=== PATIENT | female | born 1970 | race Caucasian/White ===

== ENCOUNTER 2016-11-22 13:14 | Outpatient (CLI) ==
[2015-08-23 13:47] VITALS: BMI 20.1
--- NOTE | 2016-11-22 14:03 | DI ---
EXAM: Left hip two-view HISTORY: Pain COMPARISON: None FINDINGS: The bones are normal. The hip joint is normal. No focal soft tissue abnormality. IMPERSSION: Normal examination.
--- NOTE | 2016-11-22 14:42 | DI ---
EXAM: Three views of the left shoulder. History: Left shoulder pain. Findings: No acute fracture or dislocation. No abnormal calcifications or radiopaque foreign topher s. Joint spaces are preserved. Impression: Unremarkable exam.
== END 2016-11-22 13:15 | disposition home or self-care (01) ==
LOC: RAD 13:14
PROVIDERS: ATTEND Physician Assistant
DX: M25.552 Pain in left hip (principal); M25.512 Pain in left shoulder

== ENCOUNTER 2017-03-28 10:16 | Emergency (ER) ==
[2017-03-28 10:21] VITALS: BP 125/90; TEMP 99; BMI 21.9
[2017-03-28 11:41] LABS: BASOPHILS % (AUTO) 0.6 % (0.0-3.0); EOSINOPHILS # (AUTO) 0.1 K/ul (0.0-0.7); EOSINOPHILS % (AUTO) 1.1 % (0.0-7.0); HEMOGLOBIN 13.9 g/dl (12.0-16.0); IMMATURE GRANULOCYTE % (AUTO) 0.6 % (0.0-5.0); LYMPHOCYTES # (AUTO) 1.3 K/uL (0.60-3.4); LYMPHOCYTES % (AUTO) 25.1 (10.0-50.0); MEAN CORPUSCULAR HEMOGLOBIN 31.9 pg (27.0-31.0); MEAN CORPUSCULAR HGB CONC 35.6 (31.8-35.4); MEAN CORPUSCULAR VOLUME 89.4 fl (81.0-99.0); MONOCYTES # (AUTO) 0.3 K/uL (0.4-2.0); MONOCYTES % (AUTO) 6.3 (0-10); NEUTROPHILS # (AUTO) 3.5 K/ul (2.0-6.9); NEUTROPHILS % (AUTO) 66.3; PLATELET COUNT 219 10^3/uL (140-440); RED BLOOD COUNT 4.36 10^6/ul (4.20-5.40); WHITE BLOOD COUNT 5.25 K/ul (4.6-10.2)
[2017-03-28 11:49] LABS: BILIRUBIN,URINE Negative (NEGATIVE); KETONES,URINE Negative (NEGATIVE); LEUKOCYTE ESTERASE ,URINE Negative (NEGATIVE); NITRITE,URINE Negative (NEGATIVE); PH,URINE 5.5 (5-9); PROTEIN,URINE Negative (NEGATIVE); URINE, BLOOD Negative (NEGATIVE)
[2017-03-28 11:51] LABS: ADD URINE MICROSCOPIC NO
[2017-03-28 12:13] LABS: ALBUMIN/GLOBULIN RATIO 1.29; ANION GAP 13.8; BILIRUBIN,TOTAL 0.43 mg/dL (0.00-1.20); BUN/CREATININE RATIO 17.72; CALCIUM 9.5 mg/dL (8.2-10.2); CREATININE 0.79 mg/dL (0.60-1.30); POTASSIUM 3.8 mmol/L (3.5-5.10); TOTAL PROTEIN 7.1 g/dL (6.4-8.2)
--- NOTE | 2017-03-28 12:16 | CT ---
EXAM: CT scan abdomen pelvis without contrast HISTORY: Pain COMPARISON: CT scan abdomen pelvis 08/07/2014, CT scan abdomen 02/09/2015 FINDINGS: Contiguous axial images obtained through the abdomen pelvis without contrast utilizing 5-m m collimation. Sagittal and coronal reconstructions were imaged and reviewed.. The visualized lung bases are clear. There has been prior cholecystectomy. The liver, pancreas, spleen and adrenal glan ds have normal unenhanced CT appearance. The right kidney is morphologically normal.. There is a 6 mm nonobstructive calculus lower pole left kidney. There is partial visualization of the appendix whi ch appears normal. There is no free fluid or inflammatory changes. Atherosclerotic changes are seen involving the abdominal aorta without aneurysm formation.. There is a small umbilical hernia contai gabriella only fat.. Bone windows reveals no evidence of lytic or blastic lesions. IMPRESSION: No acute intra-abdominal findings. Nonobstructive left-sided nephrolithiasis. Small umbilical hernia containing only fat. Status post cholecystectomy
--- NOTE | 2017-03-28 12:34 | ED.PDOC ---
General ED Provider: Dr. JOSE HOPPER Chief Complaint: Abdominal Pain Stated Complaint: abdominal pain Time Seen by Physician: 10:17 Mode of Arrival: Walk-In Information Source: Patient Exam Limitations: No limitations Primary Care Provider: REDDY GARCIA Nursing and Triage Documentation Reviewed and Agree: Yes GI Complaint Exam - Abdominal Pain Complaint/Exam Onset: Gradual Duration: 1 day Symptoms Are: Still present Timing: Constant Initial Severity: Mild Current Severity: Mild Location of Pain: Discrete Character: Reports: Dull Aggravating: Reports: None Alleviating: Reports: None Associated Signs and Symptoms: Denies: Diaphoresis, Fever, Cough, Chest pain, Dizziness, Back pain, Constipation, Blood in stool, Dysuria, Urinary frequency, Decreased urine output, Decreased appetite, Vaginal bleeding, Vaginal discharge , Nausea, Vomiting, Diarrhea, Sore throat, Decreased activity Related History: Reports: Similar episode AAA Risk Factors: Reports: None Cardiac Risk Factors: Reports: None Ectopic Risk Factors: Reports: None Ovarian Torsion Risk Factors: Reports: None Surgical Obstruction Risk Factors: Reports: None Related Surgical History: Reports: None Patient Rh Status: Unknown Abdominal Findings: Present: None Differential Diagnoses: Appendicitis, Bowel Obstruction, Constipation Review of Systems - Review Of Systems Constitutional: Reports: No symptoms Eyes: Reports: No symptoms Ears, Nose, Mouth, Throat: Reports: No symptoms Respiratory: Reports: No symptoms Cardiac: Reports: No symptoms GI: Reports: Abdominal pain : Reports: No symptoms Musculoskeletal: Reports: No symptoms Skin: Reports: No symptoms Neurological: Reports: No symptoms Endocrine: Reports: No symptoms Hematologic/Lymphatic: Reports: No symptoms All Other Systems: Reviewed and Negative Past Medical History - Past Medical History Endocrine: Reports: DM 2 Cardiovascular: Reports: None Respiratory: Reports: None Hematological: Reports: None Gastrointestinal: Reports: GERD Genitourinary: Reports: None Neuro/Psych: Reports: Migraine, Seizure (recurrent intracranial variceal bleeds) Musculoskeletal: Reports: None Cancer: Reports: Other (ovarian) Last Menstrual Period: hysterectomy Other Pertinent Past Medical History: demerol- throat swelling and blotchy rash no symptoms with vicodin after th - Surgical History General Surgical History: Reports: Hysterectomy - Family History Family History: Reports: Diabetes, Stroke - Social History Smoking Status: Former smoker Hx Substance Use: No Alcohol Screening: None - Immunizations Tetanus Shot up to Date: Yes Physical Exam - Physical Exam Appearance: Well-appearing, No pain distress, Well-nourished Eyes: GELACIO, EOMI, Conjunctiva clear ENT: Ears normal, Nose normal, Oropharynx normal Respiratory: Airway patent, Breath sounds clear, Breath sounds equal, Respirations nonlabored Cardiovascular: RRR, Pulses normal, No rub, No murmur GI/: Soft, Nontender, No masses, Bowel sounds normal, No Organomegaly Musculoskeletal: Normal strength, ROM intact, No edema, No calf tenderness Skin: Warm, Dry, Normal color Neurological: Sensation intact, Motor intact, Reflexes intact, Cranial nerves intact, Alert, Oriented Psychiatric: Affect appropriate, Mood appropriate Interpretation - Radiology Interpretation Radiology Interpretation By: Radiologist Radiology Results: No acute changes Critical Care Note - Critical Care Note Total Time (mins): 0 Course - Course Hematology/Chemistry: 03/28/17 11:27 03/28/17 11:37 Orders, Labs, Meds: Lab Review 03/28/17 03/28/17 03/28/17 10:50 11:27 11:37 WBC 5.25 RBC 4.36 Hgb 13.9 Hct 39.0 MCV 89.4 MCH 31.9 H MCHC 35.6 H RDW Coeff of Nii 12.1 Plt Count 219 Immature Gran % (Auto) 0.6 Neut % (Auto) 66.3 Lymph % (Auto) 25.1 [place] % (Auto) 6.3 Eos % (Auto) 1.1 Baso % (Auto) 0.6 Immature Gran # (Auto) 0.0 Neut # 3.5 Lymph # 1.3 [place] # 0.3 L Eos # 0.1 Baso # 0.0 Sodium 142 Potassium 3.8 Chloride 105 Carbon Dioxide 27 Anion Gap 13.8 BUN 14 Creatinine 0.79 Estimated GFR (MDRD) 79.00 BUN/Creatinine Ratio 17.72 Glucose 98 Calcium 9.5 Total Bilirubin 0.43 AST 16 ALT 8 L Alkaline Phosphatase 59 Total Protein 7.1 Albumin 4.0 Globulin 3.1 Albumin/Globulin Ratio 1.29 Amylase 44 Lipase 36 Urine Color Yellow Urine Clarity Clear Urine pH 5.5 Ur Specific [place] 1.015 Urine Protein Negative Urine Glucose (UA) Negative Urine Ketones Negative Urine Blood Negative Urine Nitrite Negative Urine Bilirubin Negative Urine Urobilinogen 0.2 Ur Leukocyte Esterase Negative Orders Category Date Time Status AMYLASE Stat LAB 03/28/17 11:37 Completed CBC W/ AUTO DIFF Stat LAB 03/28/17 11:27 Completed COMPREHENSIVE METABOLIC PANEL Stat LAB 03/28/17 11:37 Completed LIPASE Stat LAB 03/28/17 11:37 Completed URINALYSIS C & S IF INDICATED Stat LAB 03/28/17 10:[address] ABDOMEN/PELVIS WO CONTRAST Stat RADS 03/28/17 11:28 Completed Vital Signs: Temp Pulse Resp BP Pulse Ox 03/28/17 10:17 99.0 F 102 H 18 125/90 99 Departure - Departure Time of Disposition: 12:33 (discharge instruction given with tato verde all labs imaging, copy of imaging is given to the pt .ot seen at ALL TIME WITH NURSING STAFF) Disposition: HOME SELF-CARE Discharge Problem: Abdominal pain Instructions: Abdominal Pain (ED) Condition: Good Pt referred to PMD for follow-up: Yes Additional Instructions: Please call your Family Physician as soon as possible to schedule a follow-up appointment. Allergies/Adverse Reactions: Allergies aspirin Adverse Reaction (Verified 03/28/17 10:21) codeine Adverse Reaction (Verified 03/28/17 10:21) Latex, Natural Rubber Adverse Reaction (Verified 03/28/17 10:21) meperidine HCl [From Demerol] Adverse Reaction (Verified 03/28/17 10:21) Tape Adverse Reaction (Uncoded 03/28/17 10:21) Home Medications: Ambulatory Orders Albuterol Sulfate 0.042% Neb [Albuterol 0.042% Neb] 1 vial NEB RTBID PRN Trazodone HCl 200 mg PO BEDTIME 01/04/13 Diazepam [Valium] 5 mg PO Q12HR 08/23/15 Levetiracetam [Keppra] 500 mg PO BID 08/23/15 Ondansetron HCl [Zofran] 8 mg PO TID 08/23/15 Disposition Discussed With: Patient
== END 2017-03-28 12:41 | disposition home or self-care (01) ==
LOC: ED 10:16
DX: R10.9 Unspecified abdominal pain (principal)
CPT/HCPCS: 36415; 80053; 81001; 82150; 83690; 85025; 99283

== ENCOUNTER 2017-08-13 14:39 | Observation (INO) ==
[2017-08-13 14:49] VITALS: BMI 23.8
--- NOTE | 2017-08-13 17:04 | CT ---
EXAM: CTA of the chest. History: Chest pain. Comparison: CT abdomen pelvis 03/28/2017 Technique: Multiplanar CT images through the thorax were obtained following administration of IV con trast. MIP images and 3-D reconstructions were also acquired. Findings: Heart size is normal. Great vessels are not well opacified with contrast material but dem onstrate no aneurysm formation. No pericardial effusion. No pathologically enlarged thoracic lymph n odes. No pulmonary arterial filling defects. No focal consolidation. No appreciable pleural fluid a nd no pneumothorax. No lung masses or lung nodules. Within the visualized upper abdomen, status post cholecystectomy. 5 mm calculus within the left kidn ey. The no acute osseous abnormalities. Impression: 1. No pulmonary embolism and no evidence for pneumonia. 2. Nonobstructing left nephrolithiasis.
[2017-08-13] MEDS ORDERED: ASPIRIN CHEWABLE PO STA (17:07)
[2017-08-13] MEDS ORDERED: ALBUTEROL SULFATE NEB PRN (17:08)
[2017-08-13] MEDS ORDERED: DIAZEPAM 5 MG PO PRN (17:08)
--- NOTE | 2017-08-13 17:15 | ED.PDOC ---
General ED Provider: Dr. JOSE HOPPER Chief Complaint: Shortness of Air Stated Complaint: chest pain Time Seen by Physician: 14:44 (seen with nursing staff) Mode of Arrival: Wheelchair Information Source: Patient Exam Limitations: No limitations Primary Care Provider: REDDY GARCIA Referred to ED by: Other (nonesmoker) Nursing and Triage Documentation Reviewed and Agree: Yes Reviewed sepsis parameters & appropriate labs ordered?: Yes (history from Mr Susan and the pt) System Inflammatory Response Syndrome: Not Applicable Sepsis Protocol: For patient's 13 years and over: Temp is 96.8 and below OR 101 and greater Pulse >90 BPM Resp >20/minute Acutely Altered Mental Status Are patient's symptoms suggestive of a new infection, such as: -Pneumonia -Skin, Soft Tissue -Endocarditis -UTI -Bone, Joint Infection -Implantable Device -Acute Abdominal Infection -Wound Infection -Meningitis -Blood Stream Catheter Infection -Unknown System Inflammatory Response Syndrome: Not Applicable Cardiovascular Complaint Exam - Chest Pain Complaint/Exam Onset: Sudden Duration: 30 min 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 Denies: Diaphoresis, Nausea, Vomiting, Fever, Palpitations, Hemoptysis, Back pain, Abdominal pain, Dizziness , Short of air, Calf pain, Calf swelling Related History: Reports: Similar episode Related Surgical History: Denies: Cardiac Cath, PTCA/Stent, CABG, Pacemaker, Valve Replacement, Aneurysm Repair, Renal Surgery History of Healthcare-Acquired Pneumonia: Reports: No AMI/ACS Risk Factors: Reports: Diabetes (ON METFORMIN). Denies: Myocardial Infarction, Sedentary, Family history, Nitroglycerine use, Hypertension, Smoking , CHF, Cocaine use, Dyslipidemia TAD Risk Factors: Reports: None Pulmonary Embolism Risk Factors: Reports: None Recent Stress Test: No Recent Echo/LV Function: No JVD Present: No Subcutaneous Emphysema Present: No Diminshed Breath Sounds: No Reproducible Chest Wall Pain: No Bilateral Pulses Present: No Unequal Pulses Noted: No If Risk Factors for AMI/ACS Consider: EKG, Cardiac Enzymes Review of Systems - Review Of Systems Constitutional: Reports: No symptoms Eyes: Reports: No symptoms Ears, Nose, Mouth, Throat: Reports: No symptoms Respiratory: Reports: No symptoms Cardiac: Reports: Chest pain GI: Reports: No symptoms : Reports: No symptoms Musculoskeletal: Reports: No symptoms Skin: Reports: No symptoms Neurological: Reports: No symptoms Endocrine: Reports: No symptoms Hematologic/Lymphatic: Reports: No symptoms All Other Systems: Reviewed and Negative Past Medical History - Past Medical History Previously Healthy: Yes Endocrine: Reports: DM 2 Cardiovascular: Reports: None Respiratory: Reports: None Hematological: Reports: None Gastrointestinal: Reports: GERD Genitourinary: Reports: None Neuro/Psych: Reports: Migraine, Seizure (recurrent intracranial variceal bleeds) Musculoskeletal: Reports: None Cancer: Reports: Other (ovarian) Last Menstrual Period: none Other Pertinent Past Medical History: demerol- throat swelling and blotchy rash no symptoms with vicodin after th - Surgical History General Surgical History: Reports: Hysterectomy - Family History Family History: Reports: Diabetes, Stroke - Social History Smoking Status: Former smoker Hx Substance Use: No Alcohol Screening: None Physical Exam - Physical Exam Appearance: Well-appearing, No pain distress, Well-nourished Eyes: GELACIO, EOMI, Conjunctiva clear ENT: Ears normal, Nose normal, Oropharynx normal Respiratory: Airway patent, Breath sounds clear, Breath sounds equal, Respirations nonlabored Cardiovascular: RRR, Pulses normal, No rub, No murmur GI/: Soft, Nontender, No masses, Bowel sounds normal, No Organomegaly Musculoskeletal: Normal strength, ROM intact, No edema, No calf tenderness Skin: Warm, Dry, Normal color Neurological: Sensation intact, Motor intact, Reflexes intact, Cranial nerves intact, Alert, Oriented Psychiatric: Affect appropriate, Mood appropriate Interpretation - Radiology Interpretation Radiology Interpretation By: Radiologist Radiology Results: No acute changes - 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 Rate: Normal Rhythm: Sinus Ectopy: None - EKG Interpretation Rate: Normal Rhythm: Sinus Ectopy: None [place]: NL ST Segment: Normal Physician Notification - Case Discussed Physician Notified: STEPHEN FLORES Time of Notification: 17:17 Admit To: Observation Critical Care Note - Critical Care Note Total Time (mins): 0 Course - Course Hematology/Chemistry: 08/13/17 14:55 08/13/17 14:55 Orders, Labs, Meds: Lab Review 08/13/17 08/13/17 08/13/17 14:55 14:55 14:55 WBC 9.26 RBC 4.28 Hgb 13.8 Hct 39.9 MCV 93.2 MCH 32.2 H MCHC 34.6 RDW Coeff of Nii 12.2 Plt Count 214 Immature Gran % (Auto) 0.4 Neut % (Auto) 67.9 Lymph % (Auto) 24.3 [place] % (Auto) 5.5 Eos % (Auto) 1.5 Baso % (Auto) 0.4 Immature Gran # (Auto) 0.0 Neut # (Auto) 6.3 Lymph # (Auto) 2.3 [place] # (Auto) 0.5 Eos # (Auto) 0.1 Baso # (Auto) 0.0 PT 9.2 L INR 0.92 APTT 25.2 Sodium Potassium Chloride Carbon Dioxide Anion Gap BUN Creatinine Estimated GFR (MDRD) BUN/Creatinine Ratio Glucose Calcium Total Bilirubin AST ALT Alkaline Phosphatase Total Creatine Kinase 55 Troponin I < 0.0100 Total Protein Albumin Globulin Albumin/Globulin Ratio 08/13/17 14:55 WBC RBC Hgb Hct MCV MCH MCHC RDW Coeff of Nii Plt Count Immature Gran % (Auto) Neut % (Auto) Lymph % (Auto) [place] % (Auto) Eos % (Auto) Baso % (Auto) Immature Gran # (Auto) Neut # (Auto) Lymph # (Auto) [place] # (Auto) Eos # (Auto) Baso # (Auto) PT INR APTT Sodium 138 Potassium 3.3 L Chloride 103 Carbon Dioxide 22 Anion Gap 16.3 BUN 13 Creatinine 0.72 Estimated GFR (MDRD) 88.00 BUN/Creatinine Ratio 18.05 Glucose 107 Calcium 9.5 Total Bilirubin 0.5 AST 21 ALT 16 Alkaline Phosphatase 73 Total Creatine Kinase Troponin I Total Protein 7.3 Albumin 3.9 Globulin 3.4 Albumin/Globulin Ratio 1.15 Orders Category Date Time Status ADMIT OBSERVATION [PLACE PATIENT OBSERVATION] .TO ADMISSION 08/13/17 17:06 Active MEDSURG (MONITORED BED) EKG-(ED ONLY) Stat CARDIO 08/13/17 14:54 Completed EKG-(IP & OP ONLY) DAILY CARDIO 08/14/17 06:00 Ordered EKG-(IP & OP ONLY) DAILY CARDIO 08/15/17 06:00 Ordered EKG-(IP & OP ONLY) DAILY CARDIO 08/16/17 06:00 Ordered STRESS ECHO Routine CARDIO 08/13/17 17:06 Ordered BLOOD GLUCOSE MONITORING ACCUCHECK Q6H CARE 08/13/17 17:05 Active GIVE HS SNACK 2100 CARE 08/13/17 17:06 Active INTAKE & OUTPUT Q8HR CARE 08/13/17 17:05 Active NPO REMINDER: IMAGING ONCE CARE 08/13/17 16:00 Completed TELEMETRY MONITORING TELE CARE 08/13/17 17:07 Active VITAL SIGNS Q4HR CARE 08/13/17 17:05 Active ADA 1800 LUCIO. DIET DIETARY 08/13/17 Dinner Ordered HS SNACK DIETARY 08/13/17 Dinner Ordered REGULAR DIET DIETARY 08/13/17 Dinner Ordered CBC W/ AUTO DIFF DAILY@0600 LAB 08/14/17 06:00 Ordered CBC W/ AUTO DIFF DAILY@0600 LAB 08/15/17 06:00 Ordered CBC W/ AUTO DIFF Stat LAB 08/13/17 14:55 Completed COMPREHENSIVE METABOLIC PANEL DAILY@0600 LAB 08/14/17 06:00 Ordered COMPREHENSIVE METABOLIC PANEL DAILY@0600 LAB 08/15/17 06:00 Ordered COMPREHENSIVE METABOLIC PANEL Stat LAB 08/13/17 14:55 Completed CREATINE KINASE Q8H LAB 08/13/17 23:15 Ordered CREATINE KINASE Q8H LAB 08/14/17 07:15 Ordered CREATINE KINASE Stat LAB 08/13/17 14:55 Completed PARTIAL THROMBOPLASTIN TIME Stat LAB 08/13/17 14:55 Completed PT WITH INR Stat LAB 08/13/17 14:55 Completed TROPONIN I Q8H LAB 08/13/17 23:15 Ordered TROPONIN I Q8H LAB 08/14/17 07:15 Ordered TROPONIN I Stat LAB 08/13/17 14:55 Completed 0.9 % Sodium Chloride [Saline Flush] MEDS 08/13/17 14:54 Active 1 syr IVF PRN PRN Albuterol Sulfate 0.042% Neb [Albuterol 0.042% Neb] MEDS 08/13/17 17:08 Ordered 1 vial NEB RTBID PRN Aspirin [Aspirin Chewable] MEDS 08/13/17 17:07 Discontinued 324 mg PO ONCE STA Diazepam [Valium] MEDS 08/13/17 17:08 Ordered 5 mg PO Q12HR PRN Levetiracetam [Keppra] MEDS 08/13/17 21:00 Ordered 500 mg PO BID Ondansetron HCl [Zofran] MEDS 08/13/17 21:00 Ordered 8 mg PO TID Sodium Chloride 0.9% [Sodium Chloride] 1,000 ml MEDS 08/13/17 17:30 Ordered IV 75 mls/hr CT CHEST PE PROTOCOL Stat RADS 08/13/17 15:59 Completed Medications Generic Name Dose Route Start Last Admin Trade Name Freq PRN Reason Stop Dose Admin Sodium Chloride 1,000 mls @ 75 mls/hr 08/13/17 17:30 Sodium Chloride IV .[id number] BILLIE Non-Formulary Medication 1 vial 08/13/17 17:08 Albuterol Sulfate 0.042% Neb [Albuterol 0.042% Neb] NEB RTBID PRN Bronchospasm Non-Formulary Medication 5 mg 08/13/17 17:08 Diazepam [Valium] PO Q12HR PRN Anxiety Non-Formulary Medication 500 mg 08/13/17 21:00 Levetiracetam [Keppra] PO BID BILLIE Non-Formulary Medication 8 mg 08/13/17 21:00 Ondansetron Hcl [Zofran] PO TID BILLIE Sodium Chloride 1 syr 08/13/17 14:54 Saline Flush IVF PRN PRN To flush IV Discontinued Medications Generic Name Dose Route Start Last Admin Trade Name Freq PRN Reason Stop Dose Admin Aspirin 324 mg 08/13/17 17:07 Aspirin Chewable PO 08/13/17 17:08 ONCE STA Vital Signs: Temp Pulse Resp BP Pulse Ox 08/13/17 17:10 60 128/91 H 98 08/13/17 14:39 97.7 F 76 20 152/91 H 100 GARTH Risk Score GARTH Risk Score: Risk Score Odds of by 30D 0 0.1 (0.1-0.2) 1 0.3 (0.2-0.3) 2 0.4 (0.3-0.5) 3 0.7 (0.6-0.9) 4 1.2 (1.0-1.5) 5 2.2 (1.9-2.6) 6 3.0 (2.5-3.6) 7 4.8 (3.8-6.1) Departure - Departure Time of Disposition: 17:17 Disposition: PLACED OBSERVATION Discharge Problem: Chest pain Qualifiers: Chest pain type: unspecified Qualified Code(s): R07.9 - Chest pain, unspecified Instructions: Angina (ED) Condition: Good Pt referred to PMD for follow-up: Yes IPMP verified?: No Allergies/Adverse Reactions: Allergies aspirin Adverse Reaction (Verified 08/13/17 14:46) codeine Adverse Reaction (Verified 08/13/17 14:46) Latex, Natural Rubber Adverse Reaction (Verified 08/13/17 14:46) meperidine HCl [From Demerol] Adverse Reaction (Verified 08/13/17 14:46) Tape Adverse Reaction (Uncoded 03/28/17 10:21) Home Medications: Ambulatory Orders Albuterol Sulfate 0.042% Neb [Albuterol 0.042% Neb] 1 vial NEB RTBID PRN Diazepam [Valium] 5 mg PO Q12HR PRN 08/23/15 Levetiracetam [Keppra] 500 mg PO BID 08/23/15 Ondansetron HCl [Zofran] 8 mg PO TID 08/23/15 Disposition Discussed With: Patient, Family
[2017-08-13] MEDS ORDERED: GI COCKTAIL PO STA (17:22)
--- NOTE | 2017-08-13 17:22 | PCM ---
- Chief Complaint Chief Complaint: Chest Pain - History of Present Illness History of Present Illness: 46 yo female presented to ER today around 2:45 reporting substernal crushing, radiating chest pain. She noted chest pain starting around 2:30 pm. Sudden onset, constant pain. Was sitting at gas station, was at [employer] and ate onion ring x 2 bites and then 5 minutes later she had substernal pain. She was sitting in truck, bent over to get an item out of her purse in floor of truck and and then she had pain in the epigastric region, into chest, left jaw and into her left shoulder. not improved by anything. Worsened with deep breathing, bending and any movement. Reported jaw tightness, thick tongue, SOA and jaw tightned up and she had difficulty breathing. Symptoms lasted 15 minutes. This has never happened before. They came here urgently during this event and sought care by ER. She is having epigastric pain, 9/10, she has not received anything for pain. She has prominent acid reflux. She has seen specialist, has been to [place] and was going to get consult for NISSN fundoplication. She normally uses zantac for her reflux symptoms. has never used carafate before. She has not had any recent admissions. Endoscopy and Colonoscopy and esquivel 1 monthy ago. She has had issues with the esophagus and spasm and pain since that event. She had biopsies and everything was clear. She reports negative h. pylori. DM: Last A1c unknown. Only on metformin. Highest glucose in last 2 months 172. Lowest glucose 30. She does not know what her regular sugars are. She has been following with [facility]. She has had pneumonia vaccine. She has never been tested for gastric emptying. She has history of crohns. Gained 20 lb in last 3 months. No chronic steroids. She feels chronic tenesmus. She follows with specialist [facility] for this problem. talks in complete sentences. Pain is not letting up. Pain is now in thel eft anterior chest. Feels pressure sitting on chest pressure, 8/ 10, boulder sitting on chest. Arm is getting better but still has pins/needles. Mild anxiety, no medications for this. She has occasional worsening anxiety. No LOC, mild CUMMINS frontal 3/10 throbbing. 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 Has had numerous surgeries on her brain /spine and has migraines/seizures. No fever. No vision changes. Talking in full sentences no SOA. No falls. mowed this week. No increased activity, no trauma, no increases in pushing/pulling/tugging/lifting. Has coughed more over last 48 hours. GI coctail given 5:38 and this markedly helped abdominal pain but the chest pain was not touched. EKG reveiwed and sinus barb with 58 BPM, axis is normal up in I, isoE AVF and up II and down in III Laboratory Last Values WBC 9.26 K/ul (4.6-10.2) 08/13/17 14:55 RBC 4.28 10^6/ul (4.20-5.40) 08/13/17 14:55 Hgb 13.8 g/dl (12.0-16.0) 08/13/17 14:55 Hct 39.9 % (37.0-47.0) 08/13/17 14:55 MCV 93.2 fl (81.0-99.0) 08/13/17 14:55 MCH 32.2 pg (27.0-31.0) H 08/13/17 14:55 MCHC 34.6 (31.8-35.4) 08/13/17 14:55 RDW Coeff of Nii 12.2 % (11.6-14.8) 08/13/17 14:55 Plt Count 214 10^3/uL (140-440) 08/13/17 14:55 Immature Gran % (Auto) 0.4 % (0.0-5.0) 08/13/17 14:55 Neut % (Auto) 67.9 08/13/17 14:55 Lymph % (Auto) 24.3 (10.0-50.0) 08/13/17 14:55 [place] % (Auto) 5.5 (0-10) 08/13/17 14:55 Eos % (Auto) 1.5 % (0.0-7.0) 08/13/17 14:55 Baso % (Auto) 0.4 % (0.0-3.0) 08/13/17 14:55 Immature Gran # (Auto) 0.0 (0.0-1.0) 08/13/17 14:55 Neut # (Auto) 6.3 K/ul (2.0-6.9) 08/13/17 14:55 Lymph # (Auto) 2.3 K/uL (0.60-3.4) 08/13/17 14:55 [place] # (Auto) 0.5 K/uL (0.4-2.0) 08/13/17 14:55 Eos # (Auto) 0.1 K/ul (0.0-0.7) 08/13/17 14:55 Baso # (Auto) 0.0 K/uL (0-0.2) 08/13/17 14:55 PT 9.2 SEC (9.3-11.0) L 08/13/17 14:55 INR 0.92 SI (0.0-3.9) 08/13/17 14:55 APTT 25.2 SEC (23.9-40.0) 08/13/17 14:55 Sodium 138 mmol/L (136-145) 08/13/17 14:55 Potassium 3.3 mmol/L (3.5-5.10) L 08/13/17 14:55 Chloride 103 mmol/L (98-107) 08/13/17 14:55 Carbon Dioxide 22 mmol/L (21-32) 08/13/17 14:55 Anion Gap 16.3 08/13/17 14:55 BUN 13 mg/dL (7-18) 08/13/17 14:55 Creatinine 0.72 mg/dL (0.60-1.30) 08/13/17 14:55 Estimated GFR (MDRD) 88.00 mL/min 08/13/17 14:55 BUN/Creatinine Ratio 18.05 08/13/17 14:55 Glucose 107 mg/dL (70-110) 08/13/17 14:55 Calcium 9.5 mg/dL (8.2-10.2) 08/13/17 14:55 Total Bilirubin 0.5 mg/dL (0.00-1.20) 08/13/17 14:55 AST 21 U/L (15-37) 08/13/17 14:55 ALT 16 U/L (12-78) 08/13/17 14:55 Alkaline Phosphatase 73 U/L (42-98) 08/13/17 14:55 Total Creatine Kinase 55 U/L 08/13/17 14:55 Troponin I < 0.0100 ng/ml (0.0000-0.4000) 08/13/17 14:55 Total Protein 7.3 g/dL (6.4-8.2) 08/13/17 14:55 Albumin 3.9 g/dL (3.4-5.0) 08/13/17 14:55 Globulin 3.4 08/13/17 14:55 Albumin/Globulin Ratio 1.15 08/13/17 14:55 CTA negative for PE. Non obs left nephrolith A1C returned normal 4.8 Mg normal 2.1 - Review of Systems Constitutional: chills, weakness, sweats, fatigue, loss of appetite. No: fever Eyes: No: blurred vision, double-vision, discharge, itching, pain, redness, photophobia Ears: No: pain, bleeding, drainage, ringing, hearing loss, other Nose: No: bleeding, congestion, discharge, other Throat: swelling. No: pain, voice change, other Mouth: No: bleeding, pain, swelling, other Respiratory: shortness of air (briefly then resolved. Talking in complete sentences in hospital. ), pain with breathing. No: cough, wheeze, hemoptysis, other Cardiovascular: chest pain, left arm pain, diaphoresis. No: PND, orthopnea, edema, palpitations, syncope Gastrointestinal: abdominal pain, nausea, vomiting, dysphagia. No: other, diarrhea, melena, hematemesis, hematochezia, constipation Genitourinary: No: dysuria, hematuria, frequency, incontinence, flank pain, vaginal discharge, abnormal bleeding, pelvic pain, other Neurological: headache (chronic), dizziness, seizure (none recently but seizure history ), numbness (left hand median/ulnar and radial. ), weakness Musculoskeletal: pain (left shoulder. ) Skin: No: rash, pruritus, lacerations, wounds, bruising, other Hematology: No: easy bruising, easy bleeding, swollen glands, other Endocrine: weight changes (weight gain) Psychiatric: anxiety. No: depression, sleeplessness, hopelessness, suicidal, hallucinations Habits: No: tobacco use (former smoker), substance use, alcohol use - Past Medical History Past Medical History: uterine, ovarian cancer s/p radical hysterectomy. Crohns , anxiety, Acid reflux. Numerous tattoo. DM, Essential HTN. Miscarriages x7. Molar (hysterectomy). - Past Surgical History Past Surgical History: total hysterectomy. Cholecystectomy, Csection, vaginal delivery. D+C x 3. - Allergies Allergies/Adverse Reactions: Allergies Allergy/AdvReac Type Severity Reaction Status Date / Time aspirin AdvReac Verified 08/13/17 14:46 codeine AdvReac Verified 08/13/17 14:46 Latex, Natural Rubber AdvReac Verified 08/13/17 14:46 meperidine HCl [From Demerol] AdvReac Verified 08/13/17 14:46 Tape AdvReac Uncoded 03/28/17 10:21 - Medications Medications: Medications Generic Name Dose Route Start Last Admin Trade Name Freq PRN Reason Stop Dose Admin Sodium Chloride 1,000 mls @ 75 mls/hr 08/13/17 17:30 Sodium Chloride IV .[id number] BILLIE Non-Formulary Medication 1 vial 08/13/17 17:08 Albuterol Sulfate 0.042% Neb [Albuterol 0.042% Neb] NEB RTBID PRN Bronchospasm Non-Formulary Medication 5 mg 08/13/17 17:08 Diazepam [Valium] PO Q12HR PRN Anxiety Non-Formulary Medication 500 mg 08/13/17 21:00 Levetiracetam [Keppra] PO BID BILLIE Non-Formulary Medication 8 mg 08/13/17 21:00 Ondansetron Hcl [Zofran] PO TID BILLIE Sodium Chloride 1 syr 08/13/17 14:54 Saline Flush IVF PRN PRN To flush IV - Family History Past Family History: Mother living: Seizures, migraines, DM, HTN. father living DM/HTN. Grandmother migraines, seizures. Children x 2 seizures, cavernous hemangiomas. Cancer prominent in family. - Social History Past Social History: Lives at home with , 2 children. Disability since 13 yr old (migraines/hemangiomas). Quit tobacco 5 years ago. History of cancer of [employer] origin. - Vital Signs Temperature: 97.7 F Pulse Rate: 60 Respiratory Rate: 20 Blood Pressure: 128/91 O2 Sat by Pulse Oximetry: 98 - Body Composition Height: 5 ft 2 in Weight: 130 lb Body Mass Index (BMI): 23.8 - Physical Examination Head: Constitutional: Appearance-No acute distress, Consistent with stated age. Talks in complete sentences. Orientation- Oriented x 3, alert Posture-Not doubled over. G. Build and Nutrition-Well developed and well nourished. Normal BMI General- Patient is pleasant and cooperative with the interview and exam. Numerous tattoo. She has a subdermal piercing along anterior chest. Integumentary: General-No rashes, ulcers or lesions. Palpation- Normal skin moisture/turgor. Skin is warm to touch, appropriate. Capillary refill is normal bilateral Upper and lower extremity. As noted numerous tattoo. Head/Neck: Head- normocephalic and atraumatic. Neck- without visible/palpable lumps or pulsations. Palpation- No bony tenderness about head/neck along frontal, occipital, temporal, parietal, mastoid, jawline, zygoma, orbit or any other location. NO temporal artery tenderness. No TMJ tenderness. Neck Supple. Thyroid-No thyromegaly, no nodules Eye: Bilaterally PERRLA, EOMI. No discharge. Upper and lower eyelids are normal. Sclera/conjunctiva normal without discharge. Cornea is normal and clear. Lens is normal. Eyeball appears normal. No ciliary flushing, no conjunctival injection. ENMT: Pinna- normal without tenderness or erythema. External auditory canal Left- normal without erythema or discharge, no excessive cerumen. External auditory canal Right-normal without erythema or discharge, no excessive cerumen. TM left- Page/pearly, normal light reflex and anatomy TM Right- Page/ pearly, normal light reflex and anatomy Hearing Assessment-normal to conversational speech. Nose and sinus- No sinus tenderness along frontal/ maxillary region. External appearance normal and midline. Nares- bilateral quiet airflow, no discharge. Nasal mucosa- No bleeding noted and no ulcerations observed. [place], moist. Turbinates non boggy. Lips- normal color, moist without cracks/lesions Oral Cavity/Palate- hard/soft palate intact without lesions, oral mucosa pink and moist. Dentition assessed and discussed appropriate oral care. Tongue normal midline. Oropharynx- no pharyngeal erythema, Uvula midline. No post nasal drip. No exudate. Salivary glands- Non tender to palpation CHEST/LUNG: Inspection- symmetric chest wall no pectus deformity. Normal effort , no distress, no use of accessory muscles. Palpation- nontender sternum, ribline. No abnormal pulsations. Auscultation- Breath sounds normal throughout all lung petit. Normal tracheal sounds, Normal bronchial sounds overlying sternum, Bronchovessicular sounds normal between scapulae posteriorly, Normal vessicular breath sounds heard throughout periphery. Lungs are clear today. Adventitious sounds- No wheezes, rales, rhonchi. With nurse in room region superior to nipple palpated and she is tender entire superior left sternum and chest. NO ecchymosis, no deformity noted. CT completed and no rib fractures. CARDIOVASCULAR: Carotid artery- normal, no bruits or abnormal pulsations. Jugular vein- no pulsations. Palpation/Percussion- Normal PMI, no palpable thrill Auscultation- Regular rate and rhythm. No murmur noted in sitting, supine positions. Reproducible chest wall pain along left sternal border and more prominently under the clavicle on left. ABDOMEN: Inspection- normal and no visible pulsations. Normal contour. Auscultation- Bowel sounds normal, no abdominal bruits. Palpation/Percussion- soft, tender epigastric region but did not recreate symptoms, no rebound tenderness, no rigidity (guarding), no jar tenderness, no masses. Liver-no hepatomegaly, Spleen no splenomegaly, Hernias- none. Rectal not examined. Peripheral Vascular: Upper extremity Left- Normal temperature with pink nailbeds and no ulcerations. Upper extremity Right- Normal temperature with pink nailbeds and no ulcerations. Lower extremity- Normal temperature with pink nailbeds and no ulcerations. DP pulses 2+ bilaterally. Pedal hair intact. Normal capillary refill. Edema- No edema. Normal capillary refills bilateral UE. Musculoskeletal: Generalized-No generalized swelling or edema of extremities, no digital clubbing or cyanosis, neurovascularly intact all four extremities. Upper extremity- Symmetrical posture. No visible deformity. Normal sensation along medial and lateral upper extremity proximally and distally. NO tenderness overlying shoulder, lateral/medial epicondyle. [employer] Supervisor 5/5 and strength 5/5 bilateral UE. Elbow palpated, no tenderness overlying olecranon. Normal supination, pronation to active/passive ROM and to resisted rotation. Bicep insertion/tricep insertion appear normal without obvious pathology. Rotator cuff evaluated and intact. Normal wrist ROM bilaterally. Normal hand movement, intrinsic muscles of hands normal. No tenderness to palpation of hands/wrists/ elbows. Reports numbness LUE but she can director vaccine, make OK sign and complete tasks. Temperature cool but similar to right UE. NO visible differences, no edema. Neck palpated and no visible deformity/changes. Lower extremity- Hip: Not tender to palpation, no pain, no swelling, edema or erythema of surrounding tissue, normal strength and tone. Normal appearing hip ROM bilaterally without pain. Knee: Knee ROM normal. No tenderness overlying trochanters, no tenderness about patella, quad tendon, patellar tendon. No tenderness at tibial tuberosity. Ankle: normal ROM not tender to palpation along medial/lateral malleolus. Foot: Normal movement of toes, no tenderness bilateral feet/toes. Normal foot type. Spine/Ribs- No deformities, masses or tenderness, no known fractures, normal strength, Normal ROM. Normal stability No tenderness along C/T/L spine. Normal appearing ROM about spine. Neurological: General- Moves all 4 extremities symmetrically. Symmetrical face and body posture. Cranial nerves- individually evaluated II-XII and intact. PERRLA, Normal EOMI, visual/special senses appear intact, Face is symmetrical and normal sensation/movement, normal tongue, normal strength/posture of neck musculature. Reflexes- intact with DTR 2+ patellar, Achilles, bicep, brachial, tricep. Ankle clonus normal with 2 beats. Strength- 5/5 bilateral UE and LE. Soft touch- intact bilateral UE and LE. Temperature sensation- intact bilateral UE and LE. Almendarez negative. Reflexes intact. Neuropsych: Oriented- Person, place, time. (AAOx3), Mood/affect- normal and congruent. Able to articulate well. Speech-Normal speech, normal rate, normal tone, normal use of language, volume and coherence. Thought content- normal with ability to perform basic computations and apply abstract thought/reason. Associations- intact, no SI/HI, no hallucinations, delusions, obsessions. Judgment/insight- Appropriate. Memory-Recall intact, remote and recent memory intact. Knowledge- Age appropriate fund of knowledge, concentration and attention span normal. Lymphatic: Head/Neck- normal size and non tender to palpation. Axillary- normal size and non tender to palpation. Femoral and Inguinal- normal size and non tender to palpation. - Assessment (1) Atypical chest pain Status: Acute Code(s): R07.89 - OTHER CHEST PAIN SNOMED Code(s): 176925537 (2) Chronic hypokalemia Status: Acute Code(s): E87.6 - HYPOKALEMIA SNOMED Code(s): 73079696 (3) Diabetes mellitus with hemoglobin A1c goal of 7.0%-8.0% Status: Acute Code(s): E11.9 - TYPE 2 DIABETES MELLITUS WITHOUT COMPLICATIONS SNOMED Code(s): 581992776 (4) Chronic gastroesophageal reflux disease Status: Acute Code(s): K21.9 - GASTRO-ESOPHAGEAL REFLUX DISEASE WITHOUT ESOPHAGITIS SNOMED Code(s): 757518724, 829123983 (5) Crohns disease Status: Acute Code(s): K50.90 - CROHN'S DISEASE, UNSPECIFIED, WITHOUT COMPLICATIONS SNOMED Code(s): 21894570 (6) Left arm weakness Status: Acute Code(s): M62.81 - MUSCLE WEAKNESS (GENERALIZED) SNOMED Code(s) : 242695248 - Plan Plan: Atypical Chest Pain: 46 yo female with DM w/ 30 minutes chest pain not relieved with GI coctail, known GI issues, and reproducible chest wall pain with negative EKG, negative CT PE protocol for PE, negative enzymes. DDX for chest pain is vast. We discussed typical examination in history findings for chest pain and heart attack today. We discussed that multiple organ systems can be the cause for this complaint. We reviewed possible causes to include cardiac etiologies: ACS, pericarditis, pericardial effusion, respiratory issues to include bronchitis/asthma/COPD/bronchospasm, PE (No SOA, no CANSECO, LOW LIKELIHOOD OF PE/DVT based on Wells score 0 (1.3%)), GI pr oblems to include esophageal spasm/achalasia, Hiatal hernia, GERD, PUD, Liver disease/pancreatic disease, renal disease. CBC/CMP reviewed and okay except for mild hypokalemia (reported chronic per patient). She feels she cannot exercise. Most likely etiology at this time based on history/physical is costochondritis/chest wall pain as this is very reproducible. Also on ddx are fibrocystic changes. No palpable breast lesions/nodules on examination along superior breast. Full breast exam was not completed. Axilla was palpated and negative. Chronic GI issues, she feels her symptoms worsened when they placed a Esquivel device. I will make sure ACS negative, Stress in am and d/c home if negative, to see PCP and GI within 1 week. - Dobutamine stress in am - Tylenol 500 TID - Ibuprofen 600 TID - Carafate for GI 1g QID - Admit to Obs. - Morphine 2 q 4 hours PRN. Hypokalemia: (MG returned notmal at 6:00). Replace K+ and then repeat in am. - Check Magnesium level - K+CL- 20 meq BID. - CMP in am Crohns: Chronic, has specialist through [facility], at present not contributory to chest pain. However we discussed esophogeal spasm, ulcer, PUD as possibliity in this case. All of her pain now is in the left upper chest beneath clavicle. - Would f/u with DR. Ramos Chronic GERD: Continue ZANTAC 150 BID add Carafate 1 G QID. - Zantac 150 BID continue home med - Carafate 1 gram QID. Nonobstructing left nephrolithiasis: Incidental finding non contributory to observation status. DM: A1C unknown. Check A1C now. Renal function is fine, I will stop metformin as she just had contrast for the CT scan. Resume in 48 hours. A1C returned as 4.8 and negative. Stop diabetes meds, patient is not diabetic. - Stop Metformin, will not continue this agent. Left arm weakness: Exam showed bilateral 5/5 strength. Numbness/tingling and anterior chest pain discussed by patient. History of seizures: Cavernous hemangiomas by history, numerous surgeries to correct/repair this and she has not had a seizure recently, none today. - Continue Keppra (home med). DVT Prophy: - Lovenox 40mg GI Prophy: None specifically for this problem. With her home med zantac to be continued. Diet: ADA 1800 kcal/day diet Activity: Ad mark. Disposition: Atypical chest pain that seems best described by reproducible chest wall pain. She reports numbness in left UE that is returning. History of anxiety. We will re-eval in am. DM controlled, vitals controlled BP stable. K + is low, replacing this. GI issues seem chronic and need specialist care. In total 70 minutes spent in admission of this patient to observation status. New problem, no history of this type of an event historically. Reviewed CT chest, reviewed labs, discussed case with Dr. Block, evaluated EKG independently. If stress test negative in am, discharge home with f/u with PCP for reproducible chest wall pain. No dysphagia now. No seizures now but has history of them from previous surgeries. R/O ACS and if negative d/c home. High risk problem as hear disease could affect lif
[2017-08-13] MEDS ORDERED: SODIUM CHLORIDE 1,000 ML IV SCH (17:30)
[2017-08-13] MEDS ORDERED: VALIUM PO PRN (18:06)
[2017-08-13] MEDS ORDERED: ALBUTEROL 0.042% NEB NEB PRN (18:08)
[2017-08-13] MEDS ORDERED: TYLENOL PO PRN (18:08)
[2017-08-13] MEDS ORDERED: MOTRIN PO PRN (18:08)
[2017-08-13] MEDS: LOVENOX SUBCUT SCH (20:04)
[2017-08-13] MEDS: CARAFATE PO SCH ×2 (20:05→20:18)
[2017-08-13] MEDS: K-DUR PO SCH (20:05)
[2017-08-13] MEDS: ZANTAC PO SCH (20:06)
[2017-08-13] MEDS: ZOFRAN TAB PO SCH (20:16)
[2017-08-13] MEDS: KEPPRA PO SCH (20:19)
[2017-08-13] MEDS ORDERED: NON-FORMULARY MEDICATION (Ondansetron Hcl [Zofran] 8 MG) PO SCH (21:00)
[2017-08-13] MEDS ORDERED: LEVETIRACETAM 500 MG PO SCH (21:00)
[2017-08-13 22:28] VITALS: TEMP 97.6
[2017-08-14] MEDS: CARAFATE PO SCH ×2 (05:57→10:30)
[2017-08-14] MEDS: ZANTAC PO SCH (05:57)
[2017-08-14] MEDS ORDERED: ATROPINE SULFATE PFS ONE (07:58)
[2017-08-14] MEDS ORDERED: DOBUTAMINE 250 ML IV ONE (07:58)
--- NOTE | 2017-08-14 09:51 | DOBSTECHO ---
Ordering Physician: DR. ENOCH MITCHELL--HOSPITALIST Date of Test: 08/14/17 Reason for Examination: CHEST PAIN Current Medications: ALBUTEROL, KEPPRA, VALIUM, ZOFRAN, METFORMIN, MIRAPEX, RANITIDINE Height: 63" Weight: 130 LBS Target Heart Rate: 149/176 S-T Segment Stage Time HR BPM BP MMHG Rhythm +/- Elevation Depression Comments/ Symptoms Control Sitting 64 132/80 SR X NONE Dobutamine 250mg/D5W 5cmg/KG/mn 10cmg/KG/mn 3" 82 138/70 SR X NONE 15cmg/KG/mn 2" 98 SR X NONE 20cmg/KG/mn 2" 113 140/80 SR X NONE 25cmg/KG/mn 2" 121 130/70 SR X NONE 30cmg/KG/mn 2" 128 130/60 SR X NONE 35cmg/KG/mn 2" 139 140/60 SR X NONE 40cmg/KG/mn 1:46 142 SR X NONE Time: 4" HR B/P Time: HR B/P Time: HR B/P Recovery 85 118/72 Recovery Recovery Total Time: 14:46 Maximum Heart Rate Reached: 142 Interpretation: 98% OXYGEN SATURATION ON ROOM AIR WITH DOBUTAMINE INFUSION 1. NO EVIDENCE OF ISCHEMIA BY ST-T WAVE (RESTING HEART RATE 64 BPM TO 142 BPM WITH DOBUTAMINE INFUSION) 2. NO CHEST PAIN OR DISCOMFORT 3. NORMAL LEFT VENTRICULAR CONTRACTILITY--RESTING AND DURING DOBUTAMINE INFUSION MTDD
[2017-08-14 09:54] VITALS: BP 110/74
--- NOTE | 2017-08-14 09:54 | ECHOSTRESS ---
Date of Exam: 08/14/17 Ordering Physician: DR. ENOCH MITCHELL--HOSPITALIST Reason for Echo: CHEST PAIN M-Mode Normal Adult Results LV Dimensions Normal Adult Results AoV Opening excursions >1.6 LVEDD-base- 3.5-5.8 Ao root dimensions 2.0-3.7 LVESD-base- 3.1-4.6 L. Atrium dimensions 1.9-3.8 Post. Wall thickness 0.8-1.1 IV septum (thickness) 0.7-1.2 Post. Wall excursion 0.72-1.3 Septal motion Systolic motion R. Ventricular cavity 1.5-2.0 LVEF 60% Paradoxical septal wall motion 2-D: NORMAL LEFT VENTRICULAR CONTRACTILITY--RESTING AND WITH DOBUTAMINE INFUSION M-MODE: MV: AV: TV: PV: CHAMBER SIZE: WALL MOTION: NORMAL LEFT VENTRICULAR CONTRACTILITY--RESTING AND WITH DOBUTAMINE INFUSION PERICARDIUM: INTERPRETATION: 1. NORMAL LEFT VENTRICULAR CONTRACTILITY--RESTING AND WITH DOBUTAMINE INFUSION MTDD
[2017-08-14] MEDS: LOVENOX SUBCUT SCH (10:00)
[2017-08-14] MEDS: KEPPRA PO SCH (10:00)
[2017-08-14] MEDS: ZOFRAN TAB PO SCH (10:00)
[2017-08-14] MEDS: K-DUR PO SCH (10:30)
--- NOTE | 2017-08-14 11:37 | PCM.DC ---
Final Diagnosis: Atypical chest pain (Acute): non cardiac, + reproducible chest wall pain. EKG okay, Stress dobutamine echo negative. Chronic gastroesophageal reflux disease (Chronic): Needs f/u with GI team. Has felt markedly better over last 24 hours with carafate. ?Gastritis. Chronic hypokalemia (Acute): Replaced with K+Cl- BID in hospital> 20meq daily Rx for home given at discharge. Crohns disease (Chronic): f/u with GI. Diabetes mellitus with hemoglobin A1c goal of 7.0%-8.0% (Chronic): A1C <5.0. Stop metformin. Left arm weakness (Acute): Numbness no set pattern. Can f/u with PCP as outpatient. Seems to be scalene mediated and stress/trigger point mediated upper extremity. Chronic abdominal pain (Acute) Non obstructing nephrolith (Acute). (1) Atypical chest pain Status: Acute Code(s): R07.89 - OTHER CHEST PAIN SNOMED Code(s): 451847706 (2) Chronic hypokalemia Status: Chronic Code(s): E87.6 - HYPOKALEMIA SNOMED Code(s): 21262544 (3) Diabetes mellitus with hemoglobin A1c goal of 7.0%-8.0% Status: Chronic Code(s): E11.9 - TYPE 2 DIABETES MELLITUS WITHOUT COMPLICATIONS SNOMED Code(s): 305038435 (4) Chronic gastroesophageal reflux disease Status: Chronic Code(s): K21.9 - GASTRO-ESOPHAGEAL REFLUX DISEASE WITHOUT ESOPHAGITIS SNOMED Code(s): 832310734, 157507265 (5) Crohns disease Status: Chronic Code(s): K50.90 - CROHN'S DISEASE, UNSPECIFIED, WITHOUT COMPLICATIONS SNOMED Code(s): 22113631 (6) Left arm weakness Status: Acute Code(s): M62.81 - MUSCLE WEAKNESS (GENERALIZED) SNOMED Code(s) : 451161530 Reason for Hospitalization: Sudden onset substernal crushing Atypical Chest pain, left arm numbness, history of diabetes. Prognosis at Discharge: Good: Stress test negative. GI symptoms are markedly better per her report. Condition at Discharge: Stable vitals, Dobutamine Stress Echo was negative. Medications at Discharge: Ambulatory Orders Medication Instructions Recorded Albuterol Sulfate 0.042% Neb 1 vial IH RTBID PRN 01/04/13 [Albuterol 0.042% Neb] Diazepam [Valium] 5 mg PO Q12HR PRN 08/23/15 Levetiracetam [Keppra] 500 mg PO BID 08/23/15 Ondansetron HCl [Zofran] 8 mg PO TID 08/23/15 Metformin HCl 500 mg PO BIDWM 08/13/17 Milk Thistle 1,000 mg PO 1800 08/13/17 Pramipexole Di-HCl [Mirapex] 0.125 mg PO BEDTIME 08/13/17 Ranitidine HCl [Acid Trash Hauler] 150 mg PO BID 08/13/17 Acetaminophen [Tylenol] 500 mg PO Q8H PRN 10 Days #30 08/14/17 tablet Ibuprofen [Motrin] 600 mg PO Q8H PRN 10 Days #30 08/14/17 tablet Potassium Chloride [K-Dur] 20 meq PO DAILY 30 Days #30 tab 08/14/17 Ranitidine HCl [Zantac] 150 mg PO BIDAC tablet 08/14/17 Sucralfate [Carafate] 1 gm PO ACHS 10 Days #40 tablet 08/14/17 Lab/Diagnostics: Laboratory Last Values WBC 6.60 K/ul (4.6-10.2) 08/14/17 07:10 RBC 4.04 10^6/ul (4.20-5.40) L 08/14/17 07:10 Hgb 12.8 g/dl (12.0-16.0) 08/14/17 07:10 Hct 38.6 % (37.0-47.0) 08/14/17 07:10 MCV 95.5 fl (81.0-99.0) 08/14/17 07:10 MCH 31.7 pg (27.0-31.0) H 08/14/17 07:10 MCHC 33.2 (31.8-35.4) 08/14/17 07:10 RDW Coeff of Nii 12.5 % (11.6-14.8) 08/14/17 07:10 Plt Count 197 10^3/uL (140-440) 08/14/17 07:10 Immature Gran % (Auto) 0.3 % (0.0-5.0) 08/14/17 07:10 Neut % (Auto) 55.9 08/14/17 07:10 Lymph % (Auto) 31.7 (10.0-50.0) 08/14/17 07:10 [place] % (Auto) 9.2 (0-10) 08/14/17 07:10 Eos % (Auto) 2.4 % (0.0-7.0) 08/14/17 07:10 Baso % (Auto) 0.5 % (0.0-3.0) 08/14/17 07:10 Immature Gran # (Auto) 0.0 (0.0-1.0) 08/14/17 07:10 Neut # (Auto) 3.7 K/ul (2.0-6.9) 08/14/17 07:10 Lymph # (Auto) 2.1 K/uL (0.60-3.4) 08/14/17 07:10 [place] # (Auto) 0.6 K/uL (0.4-2.0) 08/14/17 07:10 Eos # (Auto) 0.2 K/ul (0.0-0.7) 08/14/17 07:10 Baso # (Auto) 0.0 K/uL (0-0.2) 08/14/17 07:10 PT 9.2 SEC (9.3-11.0) L 08/13/17 14:55 INR 0.92 SI (0.0-3.9) 08/13/17 14:55 APTT 25.2 SEC (23.9-40.0) 08/13/17 14:55 Sodium 143 mmol/L (136-145) 08/14/17 07:10 Potassium 3.9 mmol/L (3.5-5.10) 08/14/17 07:10 Chloride 108 mmol/L (98-107) H 08/14/17 07:10 Carbon Dioxide 25 mmol/L (21-32) 08/14/17 07:10 Anion Gap 13.9 08/14/17 07:10 BUN 20 mg/dL (7-18) H 08/14/17 07:10 Creatinine 0.83 mg/dL (0.60-1.30) 08/14/17 07:10 Estimated GFR (MDRD) 75.00 mL/min 08/14/17 07:10 BUN/Creatinine Ratio 24.09 08/14/17 07:10 Glucose 62 mg/dL (70-110) L 08/14/17 07:10 Hemoglobin A1c 4.8 (4.8-6.0) 08/13/17 14:55 Calcium 9.0 mg/dL (8.2-10.2) 08/14/17 07:10 Magnesium 2.1 mg/dL (1.7-2.2) 08/13/17 14:55 Total Bilirubin 0.3 mg/dL (0.00-1.20) 08/14/17 07:10 AST 18 U/L (15-37) 08/14/17 07:10 ALT 15 U/L (12-78) 08/14/17 07:10 Alkaline Phosphatase 72 U/L (42-98) 08/14/17 07:10 Total Creatine Kinase 43 U/L 08/14/17 07:10 Troponin I < 0.0100 ng/ml (0.0000-0.4000) 08/14/17 07:10 Total Protein 6.8 g/dL (6.4-8.2) 08/14/17 07:10 Albumin 3.5 g/dL (3.4-5.0) 08/14/17 07:10 Globulin 3.3 08/14/17 07:10 Albumin/Globulin Ratio 1.06 08/14/17 07:10 Na/K Trends 08/13/17 08/14/17 Range/Units 14:55 07:10 Sodium 138 143 (136-145) mmol/L Potassium 3.3 L 3.9 (3.5-5.10) mmol/L CTA Chest 08/13/17: PE negative. Non obstructing left nephrolith Dobutamine Stress Echo 08/14/17: Netative for ischemia. Education Provided to Patient and Family: 1. Chest pain 2. Diabetes goals A1C Goal of 7-8. Stop metformin. No obesity, no DM, minimal benefit to metformin, which can worsen GI symptoms in patient. Stop the Metformin. 3. NSAIDS R/B/A to these d/w patient.Acetaminophen. Follow package insert. Discussed risks/benefits of acetaminophen. Do not take more than 2000 mg Tylenol per day. Discussed recent changes by FDA for risks of HI. Caution advised with combination medications. Watch for excess tylenol (acetaminophen) and is present in numerous over the counter combination medications. Also be aware of ingredients as these can be duplicated in combination medications if taking various types together. If questions check with pharmacist or call.For NSAIDS follow package insert. NSAIDs work by blocking natural substances that cause inflammation. Discussed risks benefits of Ibuprofen/Aleve/Diclofenac/ Mobic for pain. Reviewed recent FDA changes regarding increased risks for HI. The patient is aware of risks. GI Prophylaxis discussed in relation to use of steroids and or NSAIDS. Discussed NSAIDS may rarely increase risk for HI/stroke , which may be greater if heart disease is present, tobacco use or diabetic for example. Rx may increase risks of GI bleed, platelet dysfunction that can occur at any time. May increase risks of kidney damage/disease. Should not use before or after CABG or major surgery without direction. Side effects can include dizziness, drowsiness, CUMMINS upset stomach to name a few. If any severe symptoms develop please call or f/u in clinic. Reviewed OTC meds usually come as 200mg per tablet. Age appropriate dosing d/w patient. 4. GERD/Gastritis: R/B/A to carafate d/w patient. Needs f/u with GI. 5. Crohns: Needs f/u with GI. 6. Arm numbness: stretching/exercises tor trapezius pain/levator scapulae pain and for scalene stretching demonstrated and improved symptoms. 7. Reproducible chest wall pain: topical agents like biofreeze (no salicylate component)may be helpful as well as Ice. Do not put ice directly on skin. 8. Keep regular scheduled appts with providers/specialists. 9. May consider BMP again in 1-2 weeks to reassess the potassium. Follow-ups: 1. PCP 1 week 2. GI team as directed/scheduled. 3. Return to ER if return of chest pain/worsening. Disposition: HOME SELF-CARE Hospital Course: Day 1: 08/13/17. Present in room with and daughter. 46 yo female presented to ER today around 2:45 reporting substernal crushing, radiating chest pain. She noted chest pain starting around 2:30 pm. Sudden onset, constant pain. Was sitting at gas station, was at [employer] and ate onion ring x 2 bites and then 5 minutes later she had substernal pain. She was sitting in truck, bent over to get an item out of her purse in floor of truck and and then she had pain in the epigastric region, into chest, left jaw and into her left shoulder. not improved by anything. Worsened with deep breathing, bending and any movement. Reported jaw tightness, thick tongue, SOA and jaw tightned up and she had difficulty breathing. Symptoms lasted 15 minutes. This has never happened before. They came here urgently during this event and sought care by ER. She is having epigastric pain, 9/10, she has not received anything for pain. She has prominent acid reflux. She has seen specialist, has been to [facility] and was going to get consult for NISSN fundoplication. She normally uses zantac for her reflux symptoms. has never used carafate before. She has not had any recent admissions. Endoscopy and Colonoscopy and esquivel 1 monthy ago. She has had issues with the esophagus and spasm and pain since that event. She had biopsies and everything was clear. She reports negative h. pylori. DM: Last A1c unknown. Only on metformin. Highest glucose in last 2 months 172. Lowest glucose 30. She does not know what her regular sugars are. She has been following with [facility]. She has had pneumonia vaccine. She has never been tested for gastric emptying. She has history of crohns. Gained 20 lb in last 3 months. No chronic steroids. She feels chronic tenesmus. She follows with specialist [facility] for this problem. talks in complete sentences. Pain is not letting up. Pain is now in thel eft anterior chest. Feels pressure sitting on chest pressure, 8/10, [place] sitting on chest. Arm is getting better but still has pins/needles. Mild anxiety, no medications for this. She has occasional worsening anxiety. No LOC, mild CUMMINS frontal 3/10 throbbing. 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 Has had numerous surgeries on her brain/spine and has migraines/ seizures. No fever. No vision changes. Talking in full sentences no SOA. No falls. mowed this week. No increased activity, no trauma, no increases in pushing/pulling/tugging/lifting. Has coughed more over last 48 hours. GI coctail given 5:38 and this markedly helped abdominal pain but the chest pain was not touched. EKG reveiwed and sinus barb with 58 BPM, axis is normal up in I, isoE AVF and up II and down in III. Labs reviewed. Day 2: A1C noted to be normal at 4.8, Mg normal 2.1. Repeat labs this am were okay, K+ was improved and nearly back to normal. Tele overnight without any issues. She had a Dobutamine stress echo this am which was negative for ischemia. She reported marked improvement in her GI symptoms, throat and stomach with the carafate and praised us for using this. She asked why it was not used historically. She had numerous voids (x7) and BM x 3, negative troponin x 3, EKG okay, stress negative. She will be sent home with Rx for tylenol/motrin for pain. She has reproducible chest wall pain that seems more like costochondritis or pectoralis muscle pain. She ate without pain, GI cocktail helped in ER, carafate provided amazing relief. "I drank cranberry juice today and I love cranberry, for the first time in a very long time. What did you do with my reflux?" She was very pleased with care. Left arm pain tender to palpation along trapezius on left, scalenes on left, levator scapulae on left, trigger points along trapezius on left. Discussed biofreeze (no ASA component), discussed stretching exercising and regular use if GI meds. I would recommend f/u with PCP in 1 week, GI team as scheduled. Return to ER if any worsening. Risks of HI are low over next 6-12 months. DM is well controlled, BP controlled, GERD is better. She may have had some underlying gastritis as well. This may be worse with the ibuprofen for the anterior chest. Carafate and zantac should do enough for stomach protection. Through hospital stay she had lovenox for DVT prophy. She ate well and labs look fine. If numbness persists in LUE consider nerve conduction study as next line, as out patient. D/C home today. Day of discharge physical exam. Constitutional: Appearance-No acute distress, Consistent with stated age. Talks in complete sentences. Orientation- Oriented x 3, alert Posture-Not doubled over. G. Build and Nutrition-Well developed and well nourished. Normal BMI General- Patient is pleasant and cooperative with the interview and exam. Numerous tattoo. She has a subdermal piercing along anterior chest. Integumentary: General-No rashes, ulcers or lesions. Palpation- Normal skin moisture/turgor. Skin is warm to touch, appropriate. Capillary refill is normal bilateral Upper and lower extremity. As noted numerous tattoo. Head/Neck: Head- normocephalic and atraumatic. Neck- without visible/palpable lumps or pulsations. Palpation- No bony tenderness about head/neck along frontal, occipital, temporal, parietal, mastoid, jawline, zygoma, orbit or any other location. NO temporal artery tenderness. No TMJ tenderness. Neck Supple. Thyroid-No thyromegaly, no nodules Eye: Bilaterally PERRLA, EOMI. No discharge. Upper and lower eyelids are normal. Sclera/conjunctiva normal without discharge. Cornea is normal and clear. Lens is normal. Eyeball appears normal. No ciliary flushing, no conjunctival injection. ENMT: Pinna- normal without tenderness or erythema. External auditory canal Left- normal without erythema or discharge, no excessive cerumen. External auditory canal Right-normal without erythema or discharge, no excessive cerumen. TM left- Page/pearly, normal light reflex and anatomy TM Right- Page/ pearly, normal light reflex and anatomy Hearing Assessment-normal to conversational speech. Nose and sinus- No sinus tenderness along frontal/ maxillary region. External appearance normal and midline. Nares- bilateral quiet airflow, no discharge. Nasal mucosa- No bleeding noted and no ulcerations observed. [place], moist. Turbinates non boggy. Lips- normal color, moist without cracks/lesions Oral Cavity/Palate- hard/soft palate intact without lesions, oral mucosa pink and moist. Dentition assessed and discussed appropriate oral care. Tongue normal midline. Oropharynx- no pharyngeal erythema, Uvula midline. No post nasal drip. No exudate. Salivary glands- Non tender to palpation CHEST/LUNG: Inspection- symmetric chest wall no pectus deformity. Normal effort , no distress, no use of accessory muscles. Palpation- tender sternum, ribs 2-4 mid clavicular line. Auscultation- Breath sounds normal throughout all lung petit. Normal tracheal sounds, Normal bronchial sounds overlying sternum, Bronchovessicular sounds normal between scapulae posteriorly, Normal vessicular breath sounds heard throughout periphery. Lungs are clear today. Adventitious sounds- No wheezes, rales, rhonchi. With nurse in room region superior to nipple palpated and she is tender entire superior left sternum and chest. NO ecchymosis, no deformity noted. CT completed and no rib fractures. CARDIOVASCULAR: Carotid artery- normal, no bruits or abnormal pulsations. Jugular vein- no pulsations. Palpation/Percussion- Normal PMI, no palpable thrill Auscultation- Regular rate and rhythm. No murmur noted in sitting, supine positions. Reproducible chest wall pain along left sternal border and more prominently under the clavicle on left. Ribs 2-4. ABDOMEN: Inspection- normal and no visible pulsations. Normal contour. Auscultation- Bowel sounds normal, no abdominal bruits. Palpation/Percussion- soft, non tender epigastric region today, better than day of admit. no rebound tenderness, no rigidity (guarding), no jar tenderness, no masses. Liver-no hepatomegaly, Spleen no splenomegaly, Hernias- none. Rectal not examined. Peripheral Vascular: Upper extremity Left- Normal temperature with pink nailbeds and no ulcerations. Upper extremity Right- Normal temperature with pink nailbeds and no ulcerations. Lower extremity- Normal temperature with pink nailbeds and no ulcerations. DP pulses 2+ bilaterally. Pedal hair intact. Normal capillary refill. Edema- No edema. Normal capillary refills bilateral UE. Musculoskeletal: Generalized-No generalized swelling or edema of extremities, no digital clubbing or cyanosis, neurovascularly intact all four extremities. Upper extremity- Symmetrical posture. No visible deformity. Normal sensation along medial and lateral upper extremity proximally and distally. Tenderness along levator scapulae on left, trapezius on left and trigger points palpable within the left superior shoulder. Reproducible pain with palpation of these trigger points. Almendarez negative, Okay sign normal, test manager 5/5, Wrist flexion/ extension normal, intrinsic muscles of hands normal. Tinnel negative, phalen negative. NO tenderness overlying bilat lateral/medial epicondyle. Tugboat Mate 5/5 and strength 5/5 bilateral UE. Elbow palpated, no tenderness overlying olecranon. Normal supination, pronation to active/passive ROM and to resisted rotation. Bicep insertion/tricep insertion appear normal without obvious pathology. Rotator cuff evaluated and intact. Normal wrist ROM bilaterally. Normal hand movement, intrinsic muscles of hands normal. No tenderness to palpation of hands/wrists/elbows. Reports numbness LUE but she can test manager, make OK sign and complete tasks. Temperature cool but similar to right UE. NO visible differences, no edema. Neck palpated and no visible deformity/changes. Neurological: General- Moves all 4 extremities symmetrically. Symmetrical face and body posture. Cranial nerves- individually evaluated II-XII and intact. PERRLA, Normal EOMI, visual/special senses appear intact, Face is symmetrical and normal sensation/movement, normal tongue, normal strength/posture of neck musculature. Reflexes- intact with DTR 2+ patellar, Achilles, bicep, brachial, tricep. Ankle clonus normal with 2 beats. Strength- 5/5 bilateral UE and LE. Soft touch- intact bilateral UE and LE. Temperature sensation- intact bilateral UE and LE. Almendarez negative. Reflexes intact. Neuropsych: Oriented- Person, place, time. (AAOx3), Mood/affect- normal and congruent. Able to articulate well. Speech-Normal speech, normal rate, normal tone, normal use of language, volume and coherence. Thought content- normal with ability to perform basic computations and apply abstract thought/reason. Associations- intact, no SI/HI, no hallucinations, delusions, obsessions. Judgment/insight- Appropriate. Memory-Recall intact, remote and recent memory intact. Knowledge- Age appropriate fund of knowledge, concentration and attention span normal. Lymphatic: Head/Neck- normal size and non tender to palpation. Axillary- normal size and non tender to palpation. Femoral and Inguinal- normal size and non tender to palpation Plan: 1. D/C Home 2. F/U PCP in 1 week 3. Keep f/u appt with GI 4. Carafate QID until meet with GI may need to see PCP to extend Rx beyond 10 days 5. Tylenol/motrin for pain 6. Home on potassium chloride 20meq daily. Repeat potassium in 1-2 weeks. 7. Return to ER if worsening symptoms or new symptoms develop. Negative stress test today, atypical chest pain likely from chest wall and/or GI source at this time. CTA no PE, no pulmonary likely path. ?esophageal spasm , gastritis as possible as well. F/U with GI and PCP. Total time 31 minutes spent in counseling/rounding and preparing patient for discharge.
== END 2017-08-14 12:32 | disposition home or self-care (01) ==
LOC: ED 14:39 → MEDSURG B 17:15
PROVIDERS: ADMIT Family Medicine; ATTEND Family Medicine
DX: R07.89 Other chest pain (principal); K21.9 Gastro-esophageal reflux disease without esophagitis; K50.90 Crohn's disease, unspecified, without complications; E87.6 Hypokalemia; M62.81 Muscle weakness (generalized); R68.84 Jaw pain; R06.02 Shortness of breath; Z87.891 Personal history of nicotine dependence; Z86.69 Personal history of other diseases of the nervous system and sense organs; Z83.3 Family history of diabetes mellitus; Z82.0 Family history of epilepsy and other diseases of the nervous system
CPT/HCPCS: 36415; 80053; 82550; 82962; 83036; 83735; 84484; 85025; 85610; 85730; 93005; 93010; 99217; 99220; 99284

== ENCOUNTER 2017-09-29 12:44 | Outpatient (CLI) | END 2017-09-29 12:45 | disposition home or self-care (01) | LOC: RHC-LAB 12:44 | PROVIDERS: ATTEND Nurse Practitioner Family | DX: E87.6 Hypokalemia (principal); R60.9 Edema, unspecified; R19.07 Generalized intra-abdominal and pelvic swelling, mass and lump; K50.90 Crohn's disease, unspecified, without complications; M25.50 Pain in unspecified joint | CPT/HCPCS: 36415; 80053; 80061; 84443; 85651; 86038; 86140; 86430; 86677 ==

== ENCOUNTER 2017-10-03 10:42 | Outpatient (CLI) ==
--- NOTE | 2017-10-03 11:27 | MAMMO ---
EXAM: Bilateral digital diagnostic mammogram (2-D and 3-D) Comparison: Bilateral mammogram 01/31/2011 History: Right breast palpable abnormality Findings: MLO and CC views of bilateral breasts demonstrate scattered fibroglandular breast parenchy ma. Stable benign bilateral breast calcifications. There are no dominant masses, no suspicious micr ocalcifications and no architectural distortions Impression: Although no mammographic abnormalities are identified, recommend further evaluation with right breast ultrasound to evaluate for the palpable event. BIRADS 0
--- NOTE | 2017-10-03 11:43 | US ---
EXAM: Right breast ultrasound. History: Right breast palpable abnormality. Comparison: Bilateral mammogram 10/03/2017 Technique: Multiple sonographic images through the right breast were obtained. Color duplex Doppler was used to interrogate vascular flow. Findings: 2.0 cm x 1.1 cm x 0.5 cm benign lymph node with fatty hilum seen at 10 o'clock 15 cm from nipple. No suspicious masses. Impression: No sonographic evidence of malignancy. Recommend followup routine screening mammography in 1 year. BIRADS 2
== END 2017-10-03 10:43 | disposition home or self-care (01) ==
LOC: RAD 10:42
PROVIDERS: ATTEND Nurse Practitioner Family
DX: N63.0 Unspecified lump in unspecified breast (principal)